=== PATIENT | female | born 1940 | race Caucasian/White ===

== ENCOUNTER 2021-04-22 09:27 | Day surgery (SDC) | payer OTHER, SELFPAY ==
[2021-04-12 09:26] VITALS: BMI 21.4
--- NOTE | 2021-04-16 14:21 | HO.ANESPROP2 ---
Documented by User: Alie Bowles NP 04/16/21 14:21 HPI - Anesthesia Eval Consult details Narrative: 80yo F for Right Cataract Multifocal with IOL Insertion PCP Cleared No previous cataract on record [facility] Past Medical History Medical History (Updated 04/22/21 @ 13:06 by Liliana pSringer MD) Anxiety and depression CAD (coronary artery disease) Dementia Generalized muscle weakness History of lumbar puncture History of postoperative nausea and vomiting HTN (hypertension) Metabolic encephalopathy Non-Moldovan speaking patient half-way resident Parkinsons disease Surgical History Surgical History History of breast lump/mass excision History of dental surgery Hx of cholecystectomy Social History Social History Housing Other:: resides at [facility] in [place] Are you a primary customer care specialist to a significant other at home: No Do you presently have visiting nurse or other home services: Yes (resides at [facility]) Patient Tobacco Use Status: Tobacco use Unknown Use of substances other than those prescribed or required for medical reasons: No Have you been hit, kicked, punched, or otherwise hurt by someone within the past year? If so, by whom?: No Are you DNR?: Yes Advance Directives: Yes (son is HCP-HCP form & MOLST forms faxed by [place]) Advance Directives Information Provided: Yes Advance Directives on File: Yes Advance Directives Date on File: 04/11/21 Recently lost weight without trying: No Eating poorly because of decreased appetite: No Nutrition Risks: Surgical patient >75years Meds Allergies Allergy/AdvReac Type Severity Reaction Status Date / Time bee pollen [bee stings] Allergy Intermediate Swelling Verified 04/22/21 11:12 Home Medications Medication Instructions Recorded Confirmed Last Taken Type Lactobacillus acidophilus 1 tab PO BID 04/11/21 04/12/21 Unknown History acetaminophen 325 mg tablet 650 mg PO Q4H PRN 04/11/21 04/12/21 Unknown History carbidopa 25 mg-levodopa 100 mg 1 tab PO BEDTIME 04/11/21 04/12/21 Unknown History tablet carbidopa ER 50 mg-levodopa 200 mg 1 tab PO BID 04/11/21 04/12/21 Unknown History tablet,extended release cholecalciferol (vitamin D3) 25 25 mcg PO DAILY 04/11/21 04/12/21 Unknown History mcg (1,000 unit) capsule (Vitamin D3) duloxetine 30 mg capsule,delayed 30 mg PO DAILY 04/11/21 04/12/21 Unknown History release meclizine 25 mg tablet 25 mg PO BID 04/11/21 04/12/21 Unknown History metoprolol succinate 50 mg 50 mg PO DAILY 04/11/21 04/12/21 Unknown History tablet,extended release 24 hr mirabegron 50 mg tablet,extended 50 mg PO BEDTIME 04/11/21 04/12/21 Unknown History release 24 hr mirtazapine 15 mg tablet 15 mg PO BEDTIME 04/11/21 04/12/21 Unknown History pantoprazole 40 mg tablet,delayed 40 mg PO BID 04/11/21 04/12/21 Unknown History release polyethylene glycol 3350 17 gram 17 g PO DAILY 04/11/21 04/12/21 Unknown History oral powder packet (Miralax) pravastatin 40 mg tablet 40 mg PO BEDTIME 04/11/21 04/12/21 Unknown History sennosides 8.6 mg tablet (senna) 17.2 mg PO BID 04/11/21 04/12/21 Unknown History valsartan 80 mg tablet 40 mg PO QAM 04/11/21 04/12/21 Unknown History valsartan 80 mg tablet 80 mg PO BEDTIME 04/11/21 04/12/21 Unknown History Exam Exam Date and Time: April 16, 2021 1421 Height,Weight and Vital Signs: Height 5 ft 8 in Weight 64.093 kg Assessment and Plan Assessment Anesthesia Assessment: Chart Reviewed Documented by User: Liliana Springer MD 04/22/21 13:08 PMFSH Active Problems Active Problems: ? Dementia- patient signs own permit. Understands about procedure Past Medical History Medical History (Updated 04/22/21 @ 13:06 by Liliana Springer MD) Anxiety and depression CAD (coronary artery disease) Dementia Generalized muscle weakness History of lumbar puncture History of postoperative nausea and vomiting HTN (hypertension) Metabolic encephalopathy Non-Moldovan speaking patient half-way resident Parkinsons disease Family History Family history of problems with anesthesia: No Surgical History Surgical History History of breast lump/mass excision History of dental surgery Hx of cholecystectomy History of Problems with Anesthesia: No Social History Social History Housing Other:: resides at [facility] in [place] Are you a primary customer care specialist to a significant other at home: No Do you presently have visiting nurse or other home services: Yes (resides at [facility]) Patient Tobacco Use Status: Tobacco use Unknown Use of substances other than those prescribed or required for medical reasons: No Have you been hit, kicked, punched, or otherwise hurt by someone within the past year? If so, by whom?: No Are you DNR?: Yes Advance Directives: Yes (son is HCP-HCP form & MOLST forms faxed by [place]) Advance Directives Information Provided: Yes Advance Directives on File: Yes Advance Directives Date on File: 04/11/21 Recently lost weight without trying: No Eating poorly because of decreased appetite: No Nutrition Risks: Surgical patient >75years Meds Allergies Allergy/AdvReac Type Severity Reaction Status Date / Time bee pollen [bee stings] Allergy Intermediate Swelling Verified 04/22/21 11:12 Home Medications Medication Instructions Recorded Confirmed Last Taken Type Lactobacillus acidophilus 1 tab PO BID 04/11/21 04/12/21 Unknown History acetaminophen 325 mg tablet 650 mg PO Q4H PRN 04/11/21 04/12/21 Unknown History carbidopa 25 mg-levodopa 100 mg 1 tab PO BEDTIME 04/11/21 04/12/21 Unknown History tablet carbidopa ER 50 mg-levodopa 200 mg 1 tab PO BID 04/11/21 04/12/21 Unknown History tablet,extended release cholecalciferol (vitamin D3) 25 25 mcg PO DAILY 04/11/21 04/12/21 Unknown History mcg (1,000 unit) capsule (Vitamin D3) duloxetine 30 mg capsule,delayed 30 mg PO DAILY 04/11/21 04/12/21 Unknown History release meclizine 25 mg tablet 25 mg PO BID 04/11/21 04/12/21 Unknown History metoprolol succinate 50 mg 50 mg PO DAILY 04/11/21 04/12/21 Unknown History tablet,extended release 24 hr mirabegron 50 mg tablet,extended 50 mg PO BEDTIME 04/11/21 04/12/21 Unknown History release 24 hr mirtazapine 15 mg tablet 15 mg PO BEDTIME 04/11/21 04/12/21 Unknown History pantoprazole 40 mg tablet,delayed 40 mg PO BID 04/11/21 04/12/21 Unknown History release polyethylene glycol 3350 17 gram 17 g PO DAILY 04/11/21 04/12/21 Unknown History oral powder packet (Miralax) pravastatin 40 mg tablet 40 mg PO BEDTIME 04/11/21 04/12/21 Unknown History sennosides 8.6 mg tablet (senna) 17.2 mg PO BID 04/11/21 04/12/21 Unknown History valsartan 80 mg tablet 40 mg PO QAM 04/11/21 04/12/21 Unknown History valsartan 80 mg tablet 80 mg PO BEDTIME 04/11/21 04/12/21 Unknown History Exam Height,Weight and Vital Signs: Height 5 ft 8 in Weight 64.093 kg Vital Signs Temp Pulse Resp BP Pulse Ox 04/22/21 11:14 98.6 F 63 18 193/82 H 97 Airway Mallampati Class: II TM Dist: >3cm Neck ROM: Full Loose/Missing/Broken Teeth: Yes (Only 4 teeth. Not loose) Heart: RRR Lungs: CTAB Assessment and Plan Assessment Anesthesia Assessment: Anesthesia Plan Discussed Final Anesthetic Review Family History of Problems with Anesthesia: No History of Problems with Anesthesia: No NPO: Yes ASA Class: III Final Preanesthetic Review: No Changes in Pt Med Stat, Meds/Allgs Chart Reviewed, Consent Obtained/Reviewed and Anes Risks/Benef Reviewed Patient Risk: Intermediate Procedure Risk: Low Assessment/Block/Sedation in SS: Assess/Block/Sedation-SS Anesthetic Plan Anesthetic Plan: MAC: Disposition: Standard PACU
[2021-04-22] VITALS (11 sets, daily range): BP systolic 164–214; BP diastolic 71–109; PULSE 51–63; RESP 12–18; TEMP 36.3–37; O2SAT 94–100
[2021-04-22] MEDS: Tetracaine HCl/PF 0.5% Oph Sol 4 ML DROPS 1 DROP EYE-RIGHT (11:24)
[2021-04-22] MEDS: Tropicamide 1 % Ophth Sol 3 ML BTL 1 DROP EYE-RIGHT ×3 (11:27→11:43)
[2021-04-22] MEDS: Phenylephrine HCL 2.5% Oph SoL 2 ML BOTTLE 1 DROP EYE-RIGHT ×3 (11:34→11:46)
[2021-04-22] MEDS: Lactated Ringers 500 ML 50 ML IV (11:37)
--- NOTE | 2021-04-22 12:40 | HO.PNOPHT ---
Ophthalmology Procedure Procedure Date of Service: 04/22/21 Ophthalmology Viscoelastic: Healon Duet Dual Pack Pro Ophthalmology Lenses: TECNIS [id number] (23.5) Procedure Notes: PREOPERATIVE DIAGNOSIS: Decreased visual acuity right eye secondary to cataract POSTOPERATIVE DIAGNOSIS: Same PROCEDURE: Right cataract extraction with intraocular lens insertion SURGEON: Benitez Mcbride M.D. ANESTHESIA: Topical/MAC ESTIMATED BLOOD LOSS: None COMPLICATIONS: None After obtaining informed consent, the patient was brought to the operating room suite and placed in the supine position. After adequate sedation per anesthesia, topical drops of Tetracaine were given to the right eye. The eye was then prepped and draped in the usual sterile fashion. The operating room microscope was then positioned over the operative eye and a lid speculum placed. A paracentesis was created. Viscoelastic was then instilled into the anterior chamber. A three plane incision was then created temporally, utilizing a 2.85 mm keratome. Capsulotomy forceps were then utilized to create a circular tear capsulotomy. Hydrodissection and hydrodelineation were carried out until adequate mobilization of the nucleus occurred. Phacoemulsification was then utilized to remove the dense central nucleus followed by removal of the cortical material utilizing the automated aspiration irrigation unit. Viscoelastic was instilled into the posterior capsular bag followed by placement of a posterior chamber intraocular lens without difficulty. The residual Viscoelastic was then removed utilizing the automated IA machine. The wound was checked and found to be watertight. The patient tolerated the procedure well and the lid speculum was removed. Intracameral injection of Vigamox 0.1 mL followed by a subtenon injection of Kenalog-40 0.2 mL were administered. The patient will be seen in the a.m.
[2021-04-22] MEDS: ondansetron HCL 4 MG/2 ML VIAL IVPUSH (13:37)
== END 2021-04-22 15:38 | disposition home or self-care (01) ==
PROVIDERS: Visit Provider Ophthalmology
PROC: (CPT 66985; principal; 2021-04-22 12:10)
DX: H25.11 Age-related nuclear cataract, right eye (principal); H54.7 Unspecified visual loss; G20 Parkinson's disease; F02.80 Dementia in other diseases classified elsewhere, unspecified severity, without behavioral disturbance, psychotic disturbance, mood disturbance, and anxiety; I50.9 Heart failure, unspecified; I25.10 Atherosclerotic heart disease of native coronary artery without angina pectoris; I10 Essential (primary) hypertension; D64.9 Anemia, unspecified; Z79.899 Other long term (current) drug therapy
CPT/HCPCS: 66984; J2250; J2405; J2550; J3010; J3300; V2632

== ENCOUNTER 2021-05-06 08:20 | Day surgery (SDC) | payer OTHER, SELFPAY ==
[2021-04-12 09:35] VITALS: BMI 21.4
--- NOTE | 2021-05-02 11:19 | MHC.SHP ---
Pre-Procedural Eval Section A Date of Service: 05/02/21 The patient is an INPATIENT: No Changes since office visit: No Cold of Flu in the past 2 weeks, No New Medical Problems, No Changes in Medication and No Patient answered all questions The History & Physical has been completed within 30 days and I have reviewed it.: Yes Section B Chief Complaint: cataract left eye Allergies: Allergies Allergy/AdvReac Type Severity Reaction Status Date / Time bee pollen [bee stings] Allergy Intermediate Swelling Verified 04/22/21 11:12 Plan Diagnosis/Plan: Unchanged I have reviewed the history and physical and performed a pertinent physical examination on my patient. No changes have occurred unless specified.
--- NOTE | 2021-05-03 10:36 | HO.ANESPROP2 ---
Documented by User: Alie Bowles NP 05/03/21 10:36 HPI - Anesthesia Eval Consult details Narrative: 80yo F for Left Cataract Extraction IOL Insertion PCP cleared Right eye 04/22/21 with MAC: Fent 50, Midaz 0.5, Zofran 4 PMFSH Past Medical History Medical History (Updated 04/22/21 @ 13:06 by Liliana Springer MD) Anxiety and depression CAD (coronary artery disease) Dementia Generalized muscle weakness History of lumbar puncture History of postoperative nausea and vomiting HTN (hypertension) Metabolic encephalopathy Non-Spanish speaking patient correction resident Parkinsons disease Family History Family history of problems with anesthesia: No Surgical History Surgical History History of breast lump/mass excision History of dental surgery Hx of cholecystectomy History of Problems with Anesthesia: No Social History Social History Housing Other:: resides at [facility] in [place] Are you a primary career development coordinator/teacher to a significant other at home: No Do you presently have visiting nurse or other home services: Yes (resides at [place]) Patient Tobacco Use Status: Tobacco use Unknown Use of substances other than those prescribed or required for medical reasons: No Have you been hit, kicked, punched, or otherwise hurt by someone within the past year? If so, by whom?: No Are you DNR?: Yes Advance Directives: Yes (kenya Buenrostro is HCP-HCP & MOLST forms faxed by [facility]) Advance Directives Information Provided: Yes Advance Directives on File: Yes Advance Directives Date on File: 04/11/21 Recently lost weight without trying: No Eating poorly because of decreased appetite: No Nutrition Risks: Surgical patient >75years Meds Allergies Allergy/AdvReac Type Severity Reaction Status Date / Time bee pollen [bee stings] Allergy Intermediate Swelling Verified 04/22/21 11:12 Home Medications Medication Instructions Recorded Confirmed Last Taken Type Lactobacillus acidophilus 1 tab PO BID 04/11/21 04/12/21 Unknown History acetaminophen 325 mg tablet 650 mg PO Q4H PRN 04/11/21 04/12/21 Unknown History carbidopa 25 mg-levodopa 100 mg 1 tab PO BEDTIME 04/11/21 04/12/21 Unknown History tablet carbidopa ER 50 mg-levodopa 200 mg 1 tab PO BID 04/11/21 04/12/21 Unknown History tablet,extended release cholecalciferol (vitamin D3) 25 25 mcg PO DAILY 04/11/21 04/12/21 Unknown History mcg (1,000 unit) capsule (Vitamin D3) duloxetine 30 mg capsule,delayed 30 mg PO DAILY 04/11/21 04/12/21 Unknown History release meclizine 25 mg tablet 25 mg PO BID 04/11/21 04/12/21 Unknown History metoprolol succinate 50 mg 50 mg PO DAILY 04/11/21 04/12/21 Unknown History tablet,extended release 24 hr mirabegron 50 mg tablet,extended 50 mg PO BEDTIME 04/11/21 04/12/21 Unknown History release 24 hr mirtazapine 15 mg tablet 15 mg PO BEDTIME 04/11/21 04/12/21 Unknown History pantoprazole 40 mg tablet,delayed 40 mg PO BID 04/11/21 04/12/21 Unknown History release polyethylene glycol 3350 17 gram 17 g PO DAILY 04/11/21 04/12/21 Unknown History oral powder packet (Miralax) pravastatin 40 mg tablet 40 mg PO BEDTIME 04/11/21 04/12/21 Unknown History sennosides 8.6 mg tablet (senna) 17.2 mg PO BID 04/11/21 04/12/21 Unknown History valsartan 80 mg tablet 40 mg PO QAM 04/11/21 04/12/21 Unknown History valsartan 80 mg tablet 80 mg PO BEDTIME 04/11/21 04/12/21 Unknown History Exam Exam Date and Time: May 03, 2021 1036 Height,Weight and Vital Signs: Height 5 ft 8 in Weight 64.093 kg Assessment and Plan Assessment Anesthesia Assessment: Chart Reviewed Final Anesthetic Review Family History of Problems with Anesthesia: No History of Problems with Anesthesia: No Documented by User: Waqar Ryan MD 05/06/21 10:22 [facility] Past Medical History Medical History (Updated 04/22/21 @ 13:06 by Liliana Springer MD) Anxiety and depression CAD (coronary artery disease) Dementia Generalized muscle weakness History of lumbar puncture History of postoperative nausea and vomiting HTN (hypertension) Metabolic encephalopathy Non-Spanish speaking patient correction resident Parkinsons disease Surgical History Surgical History History of breast lump/mass excision History of dental surgery Hx of cholecystectomy Social History Social History Housing Other:: resides at [facility] in [place] Are you a primary career development coordinator/teacher to a significant other at home: No Do you presently have visiting nurse or other home services: Yes (resides at [facility]) Patient Tobacco Use Status: Tobacco use Unknown Use of substances other than those prescribed or required for medical reasons: No Have you been hit, kicked, punched, or otherwise hurt by someone within the past year? If so, by whom?: No Are you DNR?: Yes Advance Directives: Yes (kenya Buenrostro is HCP-HCP & MOLST forms faxed by [place]) Advance Directives Information Provided: Yes Advance Directives on File: Yes Advance Directives Date on File: 04/11/21 Recently lost weight without trying: No Eating poorly because of decreased appetite: No Nutrition Risks: Surgical patient >75years Meds Allergies Allergy/AdvReac Type Severity Reaction Status Date / Time bee pollen [bee stings] Allergy Intermediate Swelling Verified 04/22/21 11:12 Home Medications Medication Instructions Recorded Confirmed Last Taken Type Lactobacillus acidophilus 1 tab PO BID 04/11/21 04/12/21 Unknown History acetaminophen 325 mg tablet 650 mg PO Q4H PRN 04/11/21 04/12/21 Unknown History carbidopa 25 mg-levodopa 100 mg 1 tab PO BEDTIME 04/11/21 04/12/21 Unknown History tablet carbidopa ER 50 mg-levodopa 200 mg 1 tab PO BID 04/11/21 04/12/21 Unknown History tablet,extended release cholecalciferol (vitamin D3) 25 25 mcg PO DAILY 04/11/21 04/12/21 Unknown History mcg (1,000 unit) capsule (Vitamin D3) duloxetine 30 mg capsule,delayed 30 mg PO DAILY 04/11/21 04/12/21 Unknown History release meclizine 25 mg tablet 25 mg PO BID 04/11/21 04/12/21 Unknown History metoprolol succinate 50 mg 50 mg PO DAILY 04/11/21 04/12/21 Unknown History tablet,extended release 24 hr mirabegron 50 mg tablet,extended 50 mg PO BEDTIME 04/11/21 04/12/21 Unknown History release 24 hr mirtazapine 15 mg tablet 15 mg PO BEDTIME 04/11/21 04/12/21 Unknown History pantoprazole 40 mg tablet,delayed 40 mg PO BID 04/11/21 04/12/21 Unknown History release polyethylene glycol 3350 17 gram 17 g PO DAILY 04/11/21 04/12/21 Unknown History oral powder packet (Miralax) pravastatin 40 mg tablet 40 mg PO BEDTIME 04/11/21 04/12/21 Unknown History sennosides 8.6 mg tablet (senna) 17.2 mg PO BID 04/11/21 04/12/21 Unknown History valsartan 80 mg tablet 40 mg PO QAM 04/11/21 04/12/21 Unknown History valsartan 80 mg tablet 80 mg PO BEDTIME 04/11/21 04/12/21 Unknown History Exam Airway Mallampati Class: II TM Dist: >3cm Neck ROM: Full Denture: Upper and Lower Heart: [id number] Lungs: cta b/l Assessment and Plan Assessment Anesthesia Assessment: Anesthesia Plan Discussed Final Anesthetic Review NPO: Yes ASA Class: III Final Preanesthetic Review: No Changes in Pt Med Stat, Meds/Allgs Chart Reviewed, Consent Obtained/Reviewed and Anes Risks/Benef Reviewed Patient Risk: Intermediate Procedure Risk: Low Assessment/Block/Sedation in SS: Assess/Block/Sedation-SS Anesthetic Plan Anesthetic Plan: MAC: and Agree w/ Assess. and Plan Disposition: Standard PACU
--- NOTE | 2021-05-06 09:47 | PC.NURSE ---
QUENTIN SPEAKING. SON BY SIDE KATHI GETTING INOFRMATION.
[2021-05-06 09:51] VITALS: BP 176/77; PULSE 54; RESP 16; TEMP 36.8; O2SAT 98
[2021-05-06] MEDS: Tetracaine HCl/PF 0.5% Oph Sol 4 ML DROPS 1 DROP EYE-LEFT (10:08)
[2021-05-06] MEDS: Tropicamide 1 % Ophth Sol 3 ML BTL 1 DROP EYE-LEFT ×3 (10:09→10:23)
[2021-05-06] MEDS: Phenylephrine HCL 2.5% Oph SoL 2 ML BOTTLE 1 DROP EYE-LEFT ×3 (10:13→10:27)
[2021-05-06] MEDS: Lactated Ringers 500 ML 50 ML IV (10:26)
--- NOTE | 2021-05-06 11:12 | HO.PNOPHT ---
Ophthalmology Procedure Procedure Date of Service: 05/06/21 Ophthalmology Viscoelastic: Healon Duet Dual Pack Pro Ophthalmology Lenses: TECNIS [id number] (24.5) Procedure Notes: PREOPERATIVE DIAGNOSIS: Decreased visual acuity left eye secondary to cataract POSTOPERATIVE DIAGNOSIS: Same PROCEDURE: Left cataract extraction with intraocular lens insertion SURGEON: Benitez Mcbride M.D. ANESTHESIA: Topical/MAC ESTIMATED BLOOD LOSS: None COMPLICATIONS: None After obtaining informed consent, the patient was brought to the operation room suite and placed in the supine position. After adequate sedation per anesthesia, topical drops of Tetracaine were given to the left eye. The eye was then prepped and draped in the usual sterile fashion. The operating room microscope was then positioned over the operative eye and a lid speculum placed. A paracentesis was created. Viscoelastic was then instilled into the anterior chamber. A three plane incision was then created temporally, utilizing a 2.85 mm keratome. Capsulotomy forceps were then utilized to create a circular tear capsulotomy. Hydrodissection and hydrodelineation were carried out until adequate mobilization of the nucleus occurred. Phacoemulsification was then utilized to remove the dense central nucleus followed by removal of the cortical material utilizing the automated aspiration irrigation unit. Viscoat elastic was instilled into the posterior capsular bag followed by placement of a posterior chamber intraocular lens without difficulty. The residual Viscoat elastic was then removed utilizing the automated IA machine. The wound was check and found to be watertight. The patient tolerated the procedure well and the lid speculum was removed. Intracameral injection of Vigamox 0.1 mL followed by a subtenon injection of Kenalog-40 0.2 mL were administered. The patient will be seen in the a.m.
[2021-05-06 11:32] VITALS: BP 163/73; PULSE 55; RESP 17; TEMP 36.3; O2SAT 95
== END 2021-05-06 11:53 | disposition home or self-care (01) ==
PROVIDERS: Visit Provider Ophthalmology
PROC: (CPT 66985; principal; 2021-05-06 11:50)
DX: H25.12 Age-related nuclear cataract, left eye (principal); H54.7 Unspecified visual loss; G20 Parkinson's disease; E78.00 Pure hypercholesterolemia, unspecified; D64.9 Anemia, unspecified; I25.10 Atherosclerotic heart disease of native coronary artery without angina pectoris; I10 Essential (primary) hypertension; R26.9 Unspecified abnormalities of gait and mobility; Z79.899 Other long term (current) drug therapy; Z66 Do not resuscitate
CPT/HCPCS: 66984; J2405; J3010; J3300; V2632